=== PATIENT | female | born 1995 | race Caucasian/White ===

== ENCOUNTER 2016-07-18 10:13 | Emergency (ER) | payer SELFPAY ==
[~2016-07-18] VITALS: Ht 160 cm; Wt 90.0 kg
[2016-07-18 10:28] VITALS: Ht 160 cm; Wt 90.0 kg
[2016-07-18] MEDS ORDERED: FAMO-18 PO (12:32)
[2016-07-18] MEDS ORDERED: BEN25 PO (12:32)
[2016-07-18] MEDS ORDERED: HC1C30 TOP (12:32)
--- NOTE | 2016-07-18 13:03 | ERD ---
ER Documentation Chief Complaint Date/Time DATE: 07/18/16 TIME: 12:57 Chief Complaint RASHES AND ITCHINESS DUE TO ALLERGIC REACTION (ATE FOOD LAST SUNDAY) HPI Patient is a 21-year-old female who came in for rashes and itching on her neck. Patient states that the symptoms appeared after eating in the food 4 days ago. It started with itching 3 days ago and then developed to a rash the day after. Patient stated that she had a short episode of shortness of breath yesterday that spontaneously resolved. Patient also complains of heartburn after eating. As of now, patient denies any shortness of breath, nausea, dysphagia or fever. ROS All systems reviewed and are negative except as per history of present illness. Medications Home Meds Active Scripts Hydrocortisone* Topical (Hydrocortisone* Topical) 1%-28.35 Gm Cream..g., 1 APPLIC TOP Q6 Y for ITCHING, #1 TUB Prov:ADRIANA GRAY 07/18/16 Famotidine* (Pepcid*) 20 Mg Tablet, 20 MG PO BID for 4 Days, TAB Prov:ADRIANA GRAY 07/18/16 Diphenhydramine Hcl* (Benadryl*) 25 Mg Cap, 25 MG PO Q6 Y for ITCHING/RASH, #30 TAB Prov:ADRIANA GRAY 07/18/16 Allergies Allergies: Coded Allergies: No Known Allergy (Unverified , 07/18/16) PMhx/Soc Medical and Surgical Hx: pt denies Medical Hx History of Surgery: Yes (salivary glands) Hx Alcohol Use: No Hx Substance Use: No Hx Tobacco Use: No Physical Exam Vitals Vital Signs Date Time Temp Pulse Resp B/P Pulse Ox O2 Delivery O2 Flow Rate FiO2 07/18/16 10:28 98.3 77 19 133/60 99 Physical Exam Physical Exam CONST: Well-developed, well-nourished, in no acute distress. Nontoxic in appearance. HEENT: Atraumatic. Normal conjunctiva. EOM intact. TM intact. External ear is normal. Clear oropharnyx without erythema. No uvular deviation. Moist mucous membranes. Supple neck. No meningismus. No submandibular induration. RESP: Clear to auscultation bilaterally. No wheezing. CARDIO: Regular rate and rhythm, no murmurs. ABD: Soft, non tender, non distended. Normal bowel sounds. No McBurney's point tenderness. No guarding or rigidity. No peritoneal signs. SKIN: Maculopapular rash on the anterior neck area. No edema noted. BACK: No midline or flank tenderness. EXT: No cyanosis or edema. Distal pulses equal and bilateral. NEURO: Awake and alert, appropriate for age. Procedures/MDM EMERGENCY DEPARTMENT COURSE/MEDICAL DECISION MAKING This is a 21-year-old Fe who comes to the emergency room secondary to complaints of rashes and itching on the anterior neck area that started after eating each food 4 days ago. Patient appears nontoxic this time, denies dysphagia or shortness of breath. My primary diagnosis is allergic reaction. Secondary diagnosis is itching Differential diagnoses considered but not limited to anaphylactic reaction, cellulitis, dermatitis. Pt is hemodynamically stable upon reassessment. The patient was discharged for outpatient management with a prescription for Pepcid, hydrocortisone cream and Benadryl. The patient was advised to followup with their PMD in 1-2 days and to return to the Emergency Department if there are any new or worsening symptoms. The patient understood and agreed with the diagnosis, treatment and plan. Patient is stable for discharge at this time. Departure Diagnosis: Primary Impression: Allergic reaction Encounter type: initial encounter Qualified Code: T78.40XA - Allergic reaction, initial encounter Additional Impression: Itching Condition: Stable Patient Instructions: First Aid: Allergic Reactions, Self-Care for Skin Rashes Referrals: [facility] YOU HAVE RECEIVED A MEDICAL SCREENING EXAM AND THE RESULTS INDICATE THAT YOU DO NOT HAVE A CONDITION THAT REQUIRES URGENT TREATMENT IN THE EMERGENCY DEPARTMENT. FURTHER EVALUATION AND TREATMENT OF YOUR CONDITION CAN WAIT UNTIL YOU ARE SEEN IN YOUR DOCTORS OFFICE WITHIN THE NEXT 1-2 DAYS. IT IS YOUR RESPONSIBILITY TO MAKE AN APPOINTMENT FOR FOL-UP CARE. IF YOU HAVE A PRIMARY DOCTOR --you should call your primary doctor and schedule an appointment IF YOU DO NOT HAVE A PRIMARY DOCTOR YOU CAN CALL OUR PHYSICIAN REFERRAL HOTLINE AT IF YOU CAN NOT AFFORD TO SEE A PHYSICIAN YOU CAN CHOSE FROM THE FOLLOWING [facility] [address] [facility] [address] [facility] [facility] [facility] [address] [facility] [address] [facility] [facility] [address] [facility]. [facility]. [address] [facility]. [facility] YOU HAVE RECEIVED A MEDICAL SCREENING EXAM AND THE RESULTS INDICATE THAT YOU DO NOT HAVE A CONDITION THAT REQUIRES URGENT TREATMENT IN THE EMERGENCY DEPARTMENT. FURTHER EVALUATION AND TREATMENT OF YOUR CONDITION CAN WAIT UNTIL YOU ARE SEEN IN YOUR DOCTORS OFFICE WITHIN THE NEXT 1-2 DAYS. IT IS YOUR RESPONSIBILITY TO MAKE AN APPOINTMENT FOR FOLOW-UP CARE. IF YOU HAVE A PRIMARY DOCTOR --you should call your primary doctor and schedule and appointment IF YOU DO NOT HAVE A PRIMARY DOCTOR YOU CAN CALL OUR PHYSICIAN REFERRAL HOTLINE AT . IF YOU CAN NOT AFFORD TO SEE A PHYSICIAN YOU CAN CHOSE FROM THE FOLLOWING [facility] INSTITUTIONS: [facility] [address] [place] [address] [facility] [address] [place] [address] [facility] [address] [place] [address] Additional Instructions: Follow-up with your primary care physician in 1-2 days. Return to the emergency department immediately should you have any new or worsening symptoms, uncontrolled fevers, or other unexplained symptoms. Take all medications as directed. ADRIANA GRAY Jul 18, 2016 13:03
== END 2016-07-18 12:41 | disposition home or self-care (01) ==
LOC: FTE 10:13
DX: T78.1XXA Other adverse food reactions, not elsewhere classified, initial encounter (principal); L29.9 Pruritus, unspecified
CPT/HCPCS: 99283